=== PATIENT | male | born 1990 | race Caucasian/White ===

== ENCOUNTER 2018-11-09 04:35 | Emergency (ER) | payer OTHER ==
[~2018-11-09] VITALS: Ht 175.3 cm; Wt 72.6 kg
--- NOTE | 2018-11-09 05:03 | NUR ---
PT Stan/OX4, PRESENTS TO THE ER REQUESTING FOR PRESCRIPTION FOR ALPRAZOLAM. PT STATES HE CURRENTLY DOES NOT HAVE A PCP, SO HE IS UNABLE TO GET HIS ALPRAZOLAM PRESCRIPTION REFILLED. VSS. PT DENIES ANY COMPLAINT AT THIS TIME.
--- NOTE | 2018-11-09 05:54 | NUR ---
RENETTA DORANTES AT BEDSIDE FOR MSE.
--- NOTE | 2018-11-09 06:09 | NUR ---
Patient discharged to home in stable conditon. Written and verbal after care instructions given. Patient verbalizes understanding of instructions. ALL BELONGINGS W/ PT. PT SELF-AMBULATED W/O DIFFICULTY.
[2018-11-09 06:10] VITALS: BP 131/72
== END 2018-11-09 06:10 | disposition home or self-care (01) ==
LOC: ER 04:39
DX: F15.93 Other stimulant use, unspecified with withdrawal (principal); F17.200 Nicotine dependence, unspecified, uncomplicated
CPT/HCPCS: A4663